=== PATIENT | male | born 1990 | race Two or more races ===

== ENCOUNTER 2023-08-07 10:42 | Emergency (ER) | payer OTHER ==
[~2023-08-07] VITALS: Ht 172.7 cm; Wt 79.8 kg
== END 2023-08-07 13:30 | disposition home or self-care (01) ==
LOC: ER 10:42
DX: S00.211A Abrasion of right eyelid and periocular area, initial encounter (principal); X58.XXXA Exposure to other specified factors, initial encounter; Y93.89 Activity, other specified; Y92.89 Other specified places as the place of occurrence of the external cause; Y99.9 Unspecified external cause status